=== PATIENT | female | born 1945 | race African-American/Black ===

== ENCOUNTER 2023-01-23 22:11 | Emergency (ER) | payer OTHER ==
[~2023-01-23] VITALS: Ht 162.6 cm; Wt 82.0 kg
[2023-01-23 22:21] VITALS: O2SAT 96
[2023-01-23] MEDS ORDERED: ACETAMINOPHEN 325MG TABLET PO STA (22:47)
[2023-01-24 01:22] LABS: BASOPHILS % 0.2 % (0.0-2.0); HEMOGLOBIN. 11.7 g/dL (12.0-16.0); LYMPHOCYTES % 9.7 % (20.0-50.0); MEAN CORPUSCULAR HGB CONC 32.5 g/dL (31.0-37.0); MEAN CORPUSCULAR VOLUME 89.2 fL (81.0-99.0); MEAN PLATELET VOLUME 8.1 fl (7.4-10.4); MONOCYTES % 10.9 % (2.0-8.0); NEUTROPHILS % 79.2 % (40.0-76.0); PLATELET 138 x1000/uL (130-400); RED BLOOD CELL COUNT 4.03 mill/uL (4.2-5.4); RED CELL DISTRIBUTION WIDTH 15.8 % (11.6-14.6)
[2023-01-24 01:34] LABS: CHLORIDE 94 mEq/L (98-107); INDEX HEMOLYSI 1 (1-3); INDEX ICTERIC 1 (1-4); INDEX LIPEMIC 1 (1-3); POTASSIUM 4.1 mEq/L (3.5-5.1); SODIUM 134 mEq/L (136-145)
[2023-01-24 01:44] LABS: ALANINE AMINOTRANSFERASE 14 IU/L (13-61); ALBUMIN 3.7 g/dL (3.4-5.0); ASPARTATE AMINOTRANSFERASE 14 IU/L (15-37); BILIRUBIN TOTAL 0.5 mg/dL (0.1-1.0); CARBON DIOXIDE 33 mEq/L (21-32); GLUCOSE 178 mg/dL (70-105); NT PRO B-TYPE NATRIURETIC PEP 8392 pg/mL (5-125); PROTEIN TOTAL 8.6 g/dL (6.0-8.3); TROPONIN I HIGH SENSITIVITY 19 ng/L (<54); UREA NITROGEN BLOOD 28 mg/dL (7-21)
[2023-01-24 01:45] LABS: CREATININE 6.1 mg/dL (0.6-1.3)
[2023-01-24] MEDS ORDERED: DEXAMETHASONE 10 MG/ML VIAL IV ONE (03:45)
[2023-01-24] MEDS ORDERED: NIRM1TAB4 PO (09:30)
[2023-01-24 10:21] VITALS: BP 114/52; PULSE 74; RESP 20; TEMP 98.4
== END 2023-01-24 10:40 | disposition short-term general hospital (02) ==
LOC: ER 22:11 → CANBEDREQ 01-25 21:15
DX: U07.1 COVID-19 (principal); R09.02 Hypoxemia; E11.22 Type 2 diabetes mellitus with diabetic chronic kidney disease; I12.0 Hypertensive chronic kidney disease with stage 5 chronic kidney disease or end stage renal disease; N18.6 End stage renal disease; Z99.2 Dependence on renal dialysis; Z98.890 Other specified postprocedural states
CPT/HCPCS: 99285; 71045; 36415; 93005; 96374; 87426; 80053; 83880; 83605; 85025; 85379; 87040; 84484; 87804 ×2; C9803; J1100

== ENCOUNTER 2025-02-01 19:32 | Emergency (ER) | payer MEDICARE, OTHER ==
[~2025-02-01] VITALS: Ht 162.6 cm; Wt 60.0 kg
[~2025-02-01 19:32] MED LIST: AMLO10TA80 PO; HYDR100T31 PO; LOSA100T33 PO; NIRM1TAB4 PO; SEVE800T8
[2025-02-01 19:45] VITALS: O2SAT 98
[2025-02-01 21:19] LABS: BASOPHILS % 0.6 % (0.0-2.0); EOSINOPHILS % 1.7 % (0.0-5.0); HEMATOCRIT. 38.3 % (36.0-48.0); HEMOGLOBIN. 12.7 g/dL (12.0-16.0); LYMPHOCYTES % 36.4 % (20.0-50.0); MEAN PLATELET VOLUME 7.5 fl (7.4-10.4); MONOCYTES % 10.3 % (2.0-8.0); NEUTROPHILS % 51.0 % (40.0-76.0); PLATELET 148 x1000/uL (130-400); RED BLOOD CELL COUNT 4.19 mill/uL (4.2-5.4); RED CELL DISTRIBUTION WIDTH 14.8 % (11.6-14.6)
[2025-02-01 21:31] LABS: INR 1.1
[2025-02-01 21:38] LABS: ETHANOL BLOOD < 10 mg/dL (<10); TROPONIN I HIGH SENSITIVITY 10 ng/L (3.0-34); UREA NITROGEN BLOOD 37 mg/dL (9-23)
[2025-02-01 21:39] LABS: ASPARTATE AMINOTRANSFERASE 23 IU/L (<34); BILIRUBIN DIRECT < 0.1 mg/dL (<=3.0)
[2025-02-01 21:40] LABS: BILIRUBIN TOTAL 0.2 mg/dL (0.1-1.0); PROTEIN TOTAL 7.6 g/dL (6.0-8.3)
[2025-02-01 21:55] LABS: CREATININE 5.0 mg/dL (0.6-1.0)
[2025-02-02] MEDS ORDERED: GUAIFENESIN 200MG/10ML SUGAR FREE UDC PO PRN
[2025-02-02] MEDS ORDERED: IPRATROPIUM/ALBUTEROL 0.5-3(2.5)MG/3ML NEB HHN PRN
[2025-02-02] MEDS ORDERED: ONDANSETRON HCL 4MG/2ML INJ IV PRN
[2025-02-02] MEDS ORDERED: DOCUSATE SODIUM 100MG CAPSULE PO PRN
[2025-02-02] MEDS ORDERED: ACETAMINOPHEN 325MG TABLET PO PRN ×2
[2025-02-02] MEDS ORDERED: CLONIDINE 0.1MG TABLET PO PRN
[2025-02-02] MEDS ORDERED: MAGNESIUM/ALUMINUM HYDROXIDE/SIMETHICONE 30ML UDC PO PRN
[2025-02-02 00:02] VITALS: BP 197/75; PULSE 81; RESP 18; TEMP 36.5; O2SAT 97
[2025-02-02 00:23] LABS: TRIGLYCERIDE 201.0 mg/dL (0-150)
[2025-02-02 00:24] LABS: LDL CHOLESTEROL 76.0 mg/dL (5-100)
[2025-02-02 00:25] LABS: PHOSPHORUS 5.2 mg/dL (2.5-4.9)
== END 2025-02-02 00:40 | disposition left against medical advice (07) ==
LOC: ER 19:32 → EDBEDREQ 23:02 → EDBEDREQTM 23:02 → ER 02-02 00:40 → CMPBEDREQ 02-03 19:25
DX: E78.5 Hyperlipidemia, unspecified (principal); E11.9 Type 2 diabetes mellitus without complications; R41.82 Altered mental status, unspecified; R29.810 Facial weakness; E11.22 Type 2 diabetes mellitus with diabetic chronic kidney disease; I12.0 Hypertensive chronic kidney disease with stage 5 chronic kidney disease or end stage renal disease; I63.9 Cerebral infarction, unspecified; N18.6 End stage renal disease; Z79.01 Long term (current) use of anticoagulants; Z79.899 Other long term (current) drug therapy; Z99.2 Dependence on renal dialysis; Z99.3 Dependence on wheelchair
CPT/HCPCS: 80061; 80076; 80048; 80320; 82962; 83036; 83735; 84100; 85025; 85610; 85730; 84484; 36415; 71045; 70496; 70498; 70450; 93005; 99291; Q9967; G0480